=== PATIENT | male | born 1950 | race Caucasian/White ===

== ENCOUNTER 2017-07-16 09:41 | Day surgery (SDC) | payer MEDICARE ==
[~2017-07-16] VITALS: Ht 185.4 cm; Wt 99.8 kg
[~2017-07-16 09:41] MED LIST: AMOXICILLIN/PO500 MG PO; ANTIVERT OR; ANTIVERT25 MG PO; ASPIRIN EC81 MG PO; AUGMENTIN875TAB PO; COUMADIN10 MG PO; COUMADIN5 MG PO; COUMADIN7.5 MG PO; COZAAR50 MG PO; DOXAZOSIN1 MG PO; DOXAZOSIN4 MG PO; FLONASE NASAL50 MCG; KEFLEX500 M1 PO; LOPRESSOR50 M1 PO; LORTAB 5/3255 MG PO; MECLIZINE25 MG PO; METAMUCIL0.52 G1 PO; METOPROLOL50 MG PO; OMEPRAZOLE20 MG PO; ONDANSETRON4 MG PO; PERCOCET 5/325M1 TAB PO; PRILOSEC20 MG/CAP PO; VANCOMYCIN HCL1.5GM IV; WARFARIN10 MG PO; ZANTAC 150 PO
[2017-07-16 12:23] VITALS: BP 107/65
== END 2017-07-16 12:55 | disposition home or self-care (01) ==
LOC: ENDO 09:41 → ORM 18:00 → ENDO 18:00
PROVIDERS: ATTEND Internal Medicine Gastroenterology
PROC: 0DBL8ZX Excision of Transverse Colon, Via Natural or Artificial Opening Endoscopic, Diagnostic (ICD-10-PCS; principal; 2017-07-16)
DX: Z12.11 Encounter for screening for malignant neoplasm of colon (principal); K64.4 Residual hemorrhoidal skin tags; K62.89 Other specified diseases of anus and rectum; K64.8 Other hemorrhoids; K57.30 Diverticulosis of large intestine without perforation or abscess without bleeding; I10 Essential (primary) hypertension; I48.91 Unspecified atrial fibrillation; Z86.010 Personal history of colon polyps

== ENCOUNTER 2017-08-29 09:41 | Observation (INO) | payer MEDICARE ==
[~2017-08-29] VITALS: Ht 185.4 cm; Wt 100.0 kg
[2017-08-29 10:17] LABS: HEMATOCRIT 42.5 % (39.0-50.0); HEMOGLOBIN 14.9 g/dl (14.0-18.0); IMMATURE GRANULOCYTES 0.2 % (0.0-1.0); MEAN CORPUSCULAR HGB 30.2 pG CALC (26.0-32.0); MEAN CORPUSCULAR HGB CONC 35.1 g/L CALC (32.0-36.0); NEUT# 4.32 thou/uL (1.82-7.42); RED BLOOD COUNT 4.94 mill/uL (4.70-6.10); RED CELL DISTRI WIDTH 13.4 % (11.5-15.5)
[2017-08-29 10:30] LABS: ALBUMIN 4.2 g/dL (3.2-5.0); ALKALINE PHOSPHATASE 97 u/l (38-126); ANION GAP 16 (6-22 (CALC)); BILIRUBIN, TOTAL 0.8 mg/dL (0.0-1.4); BUN 13 mg/dL (8-23); BUN/CREATININE RATIO 14 (12-20 (CALC)); CALCIUM 8.9 mg/dL (8.4-10.2); CARBON DIOXIDE 27 mmol/l (22-30); CHLORIDE 104 mmol/l (95-108); CREATININE 0.9 mg/dL (0.7-1.3); GFR > 60 ML/MIN (>=60 (CALC)); GFR FOR AFR.AMER. > 60 ML/MIN (>=60 (CALC)); GLUCOSE 106 mg/dL (82-115); SGOT/AST 27 u/l (19-48); SGPT/ALT 43 u/l (11-66); SODIUM 143 mmol/l (137-146); TOTAL PROTEIN 7.8 g/dL (6.3-8.2)
[2017-08-29 11:26] LABS: URINE BILIRUBIN - DIPSTICK NEGATIVE (NEGATIVE); URINE BLOOD DIPSTICK NEGATIVE (NEGATIVE); URINE CLARITY CLEAR; URINE COLOR YELLOW; URINE GLUCOSE - DIPSTICK NEGATIVE (NEGATIVE); URINE KETONE NEGATIVE (NEGATIVE); URINE LEUK ESTERASE NEGATIVE (NEGATIVE); URINE NITRITE - DIPSTICK NEGATIVE (Negative); URINE PH 5.5 (4.5-8.0); URINE PROTEIN - DIPSTICK NEGATIVE (NEG-TRACE); URINE SPECIFIC GRAVITY >=1.030; URINE UROBILINOGEN - DIPSTICK 0.2 E.U./dL (0.2)
[2017-08-29 16:35] VITALS: BP 121/71
[2017-08-29 16:40] VITALS: BP 147/81
[2017-08-29 16:45] VITALS: BP 149/90
[2017-08-29 18:45] VITALS: BP 106/57
[2017-08-30 00:25] VITALS: BP 114/69
[2017-08-30 03:20] VITALS: BP 104/62
[2017-08-30 07:57] VITALS: BP 104/62
[2017-08-30 08:12] LABS: INTERNATIONAL NORMALIZED RATIO 2.6 RATIO (0.7-1.3); PROTHROMBIN TIME 30.6 SECONDS (9.0-12.5)
== END 2017-08-30 12:50 | disposition home or self-care (01) ==
LOC: ED 09:41 → ED-I 11:53 → ED 12:05 → MS2 12:06
PROVIDERS: Family Medicine; ADMIT Internal Medicine; ATTEND Internal Medicine
DX: R55 Syncope and collapse (principal); I48.0 Paroxysmal atrial fibrillation; I10 Essential (primary) hypertension; I73.9 Peripheral vascular disease, unspecified; G62.9 Polyneuropathy, unspecified; Z79.01 Long term (current) use of anticoagulants; R94.31 Abnormal electrocardiogram [ECG] [EKG]

== ENCOUNTER 2018-05-12 19:58 | Emergency (ER) | payer MEDICARE ==
[~2018-05-12] VITALS: Ht 185.4 cm; Wt 99.1 kg
[2018-05-12 20:40] LABS: HEMOGLOBIN 15.7 g/dl (14.0-18.0); IMMATURE GRANULOCYTES 0.4 % (0.0-1.0); MEAN CELL VOLUME 86.5 fL CALC (80.0-100.0); MEAN CORPUSCULAR HGB 30.2 pG CALC (26.0-32.0); MEAN CORPUSCULAR HGB CONC 34.9 g/L CALC (32.0-36.0); NEUT# 4.82 thou/uL (1.82-7.42); RED BLOOD COUNT 5.2 mill/uL (4.70-6.10); RED CELL DISTRI WIDTH 13.7 % (11.5-15.5)
[2018-05-12 20:51] LABS: ALBUMIN 4.4 g/dL (3.2-5.0); ALKALINE PHOSPHATASE 105 u/l (38-126); ANION GAP 13 (6-22 (CALC)); BILIRUBIN, TOTAL 0.6 mg/dL (0.0-1.4); BUN 19 mg/dL (8-23); BUN/CREATININE RATIO 19 (12-20 (CALC)); CARBON DIOXIDE 27 mmol/l (22-30); CHLORIDE 103 mmol/l (95-108); GFR > 60 ML/MIN (>=60 (CALC)); GFR FOR AFR.AMER. > 60 ML/MIN (>=60 (CALC)); POTASSIUM 4.1 mmol/l (3.5-5.1); SGOT/AST 29 u/l (19-48); SGPT/ALT 39 u/l (11-66); SODIUM 139 mmol/l (137-146)
[2018-05-12 20:54] LABS: TOTAL PROTEIN 8.3 g/dL (6.3-8.2)
[2018-05-12 20:56] LABS: INTERNATIONAL NORMALIZED RATIO 2.5 RATIO (0.7-1.3)
[2018-05-12 21:00] LABS: MYOGLOBIN 33 ng/mL (0 - 121)
[2018-05-12] MEDS ORDERED: LOPRESSOR 550 MG/TAB PO (21:41)
[2018-05-12 21:49] VITALS: BP 115/74
== END 2018-05-12 21:57 | disposition home or self-care (01) ==
LOC: ED 19:58
PROVIDERS: Family Medicine
DX: I48.0 Paroxysmal atrial fibrillation (principal); Z79.01 Long term (current) use of anticoagulants; R53.1 Weakness; R42 Dizziness and giddiness; I10 Essential (primary) hypertension

== ENCOUNTER 2018-12-09 20:00 | Emergency (ER) | payer MEDICARE ==
[~2018-12-09] VITALS: Ht 182.9 cm; Wt 100.0 kg
[~2018-12-09 20:00] MED LIST changes: +LOPRESSOR 550 MG/TAB PO
[2018-12-09 20:33] LABS: IMMATURE GRANULOCYTES 0.2 % (0.0-5.0); MEAN CELL VOLUME 86.6 fL CALC (80.0-100.0); MEAN CORPUSCULAR HGB 29.9 pG CALC (26.0-32.0); MEAN CORPUSCULAR HGB CONC 34.6 g/L CALC (32.0-36.0); NEUT# 4.62 thou/uL (1.82-7.42); RED BLOOD COUNT 5.31 mill/uL (4.70-6.10); RED CELL DISTRI WIDTH 13.3 % (11.5-15.5)
[2018-12-09 20:40] LABS: ALKALINE PHOSPHATASE 107 u/l (38-126); ANION GAP 16 (6-22 (CALC)); BILIRUBIN, TOTAL 0.6 mg/dL (0.0-1.4); BUN 18 mg/dL (8-23); BUN/CREATININE RATIO 16 (12-20 (CALC)); CARBON DIOXIDE 27 mmol/l (22-30); CHLORIDE 102 mmol/l (95-108); CREATININE 1.2 mg/dL (0.7-1.3); GFR 60 ML/MIN (>=60 (CALC)); GFR FOR AFR.AMER. > 60 ML/MIN (>=60 (CALC)); POTASSIUM 3.9 mmol/l (3.5-5.1); SGOT/AST 31 u/l (19-48); SODIUM 141 mmol/l (137-146)
[2018-12-09] MEDS ORDERED: HYDROCO/APAP1 TA9 PO (20:43)
[2018-12-09 20:52] LABS: MYOGLOBIN 38 ng/mL (0 - 121)
[2018-12-09 20:56] LABS: HEMOGLOBIN 15.9 g/dl (14.0-18.0)
[2018-12-09 21:03] LABS: INTERNATIONAL NORMALIZED RATIO 2.8 RATIO (0.7-1.3); PROTHROMBIN TIME 29.1 SECONDS (9.0-12.5)
[2018-12-09 21:21] LABS: ALBUMIN 4.7 g/dL (3.2-5.0); TOTAL PROTEIN 8.5 g/dL (6.3-8.2)
[2018-12-09 21:51] LABS: URINE BILIRUBIN - DIPSTICK NEGATIVE (NEGATIVE); URINE BLOOD DIPSTICK NEGATIVE (NEGATIVE); URINE COLOR YELLOW; URINE GLUCOSE - DIPSTICK 100 mg/dL (NEGATIVE); URINE KETONE NEGATIVE (NEGATIVE); URINE LEUK ESTERASE NEGATIVE (NEGATIVE); URINE NITRITE - DIPSTICK NEGATIVE (Negative); URINE PH 5.5 (4.5-8.0); URINE PROTEIN - DIPSTICK NEGATIVE (NEG-TRACE); URINE UROBILINOGEN - DIPSTICK 0.2 E.U./dL (0.2)
[2018-12-09 21:53] LABS: BARBITURATES NEGATIVE (NEGATIVE); COCAINE NEGATIVE (NEGATIVE); METHADONE NEGATIVE (NEGATIVE); OXCYCODONE NEGATIVE (NEGATIVE); TETRAHYDROCANNABIONOL NEGATIVE (NEGATIVE); TRICYLIC ANTIDEPRESSANTS NEGATIVE (NEGATIVE)
[2018-12-09] MEDS ORDERED: LOPRESSOR 550 MG/TAB PO (22:00)
[2018-12-09 22:02] VITALS: BP 112/77
== END 2018-12-09 22:02 | disposition home or self-care (01) ==
LOC: ED 20:00
PROVIDERS: Family Medicine
DX: I47.1 Supraventricular tachycardia (principal); F15.988 Other stimulant use, unspecified with other stimulant-induced disorder; I48.91 Unspecified atrial fibrillation; I10 Essential (primary) hypertension

== ENCOUNTER 2019-04-21 20:01 | Observation (INO) | payer MEDICARE ==
[~2019-04-21] VITALS: Ht 182.9 cm; Wt 95.5 kg
[~2019-04-21 20:01] MED LIST changes: +HYDROCO/APAP1 TA9 PO
[2019-04-21 20:26] LABS: HEMATOCRIT 43.3 % (39.0-50.0); HEMOGLOBIN 14.9 g/dl (14.0-18.0); IMMATURE GRANULOCYTES 0.3 % (0.0-5.0); MEAN CELL VOLUME 85.2 fL CALC (80.0-100.0); MEAN CORPUSCULAR HGB 29.3 pG CALC (26.0-32.0); MEAN CORPUSCULAR HGB CONC 34.4 g/L CALC (32.0-36.0); NEUT# 6.12 thou/uL (1.82-7.42); RED BLOOD COUNT 5.08 mill/uL (4.70-6.10); RED CELL DISTRI WIDTH 13.8 % (11.5-15.5)
[2019-04-21 20:58] LABS: ALBUMIN 4.2 g/dL (3.2-5.0); ALKALINE PHOSPHATASE 92 u/l (38-126); ANION GAP 14 (6-22 (CALC)); BILIRUBIN, TOTAL 0.5 mg/dL (0.0-1.4); BUN 19 mg/dL (8-23); BUN/CREATININE RATIO 19 (12-20 (CALC)); CARBON DIOXIDE 26 mmol/l (22-30); CHLORIDE 104 mmol/l (95-108); GFR > 60 ML/MIN (>=60 (CALC)); GFR FOR AFR.AMER. > 60 ML/MIN (>=60 (CALC)); POTASSIUM 3.7 mmol/l (3.5-5.1); SGOT/AST 23 u/l (19-48); SODIUM 140 mmol/l (137-146); TOTAL PROTEIN 7.2 g/dL (6.3-8.2)
[2019-04-21 21:10] LABS: ACT PARTIAL THROMBO TIME 42.1 SECONDS (20.0-32.5); INTERNATIONAL NORMALIZED RATIO 2.8 RATIO (0.7-1.3); MYOGLOBIN 31 ng/mL (0 - 121); PROTHROMBIN TIME 29.3 SECONDS (9.0-12.5)
[2019-04-21] MEDS ORDERED: WARFARIN7.5 MG PO (21:30)
[2019-04-21] MEDS ORDERED: COUMADIN5 MG PO (21:31)
[2019-04-21 21:39] LABS: URINE BILIRUBIN - DIPSTICK NEGATIVE (NEGATIVE); URINE BLOOD DIPSTICK NEGATIVE (NEGATIVE); URINE COLOR YELLOW; URINE GLUCOSE - DIPSTICK 500 mg/dL (NEGATIVE); URINE KETONE NEGATIVE (NEGATIVE); URINE LEUK ESTERASE NEGATIVE (NEGATIVE); URINE NITRITE - DIPSTICK NEGATIVE (Negative); URINE PH 5.5 (4.5-8.0); URINE PROTEIN - DIPSTICK NEGATIVE (NEG-TRACE); URINE UROBILINOGEN - DIPSTICK 0.2 E.U./dL (0.2)
[2019-04-21 21:46] LABS: BARBITURATES NEGATIVE (NEGATIVE); COCAINE NEGATIVE (NEGATIVE); METHADONE NEGATIVE (NEGATIVE); OXCYCODONE NEGATIVE (NEGATIVE); TETRAHYDROCANNABIONOL NEGATIVE (NEGATIVE); TRICYLIC ANTIDEPRESSANTS NEGATIVE (NEGATIVE)
[2019-04-21 22:09] VITALS: BP 125/73
[2019-04-21 23:45] VITALS: BP 150/75
[2019-04-22] VITALS (9 sets, daily range): BP systolic 96–127; BP diastolic 57–77
== END 2019-04-22 12:30 | disposition home or self-care (01) ==
LOC: ED 20:01 → ED-I 21:20 → ED 21:38 → MS2 21:39 → ICU 23:40
PROVIDERS: Emergency Medicine; ADMIT Internal Medicine; ATTEND Internal Medicine
DX: I48.0 Paroxysmal atrial fibrillation (principal); I10 Essential (primary) hypertension; L98.9 Disorder of the skin and subcutaneous tissue, unspecified; L91.8 Other hypertrophic disorders of the skin; Z79.01 Long term (current) use of anticoagulants

== ENCOUNTER 2019-12-31 | Emergency (ER) | payer MEDICARE ==
[~2019-12-31] MED LIST changes: +WARFARIN7.5 MG PO
[2019-12-31 11:54] LABS: MEAN CELL VOLUME 87.8 fL CALC (80.0-100.0); MEAN CORPUSCULAR HGB CONC 34.1 g/L CALC (32.0-36.0); NEUT# 4.15 thou/uL (1.82-7.42); RED BLOOD COUNT 4.67 mill/uL (4.70-6.10); RED CELL DISTRI WIDTH 13.3 % (11.5-15.5)
[2019-12-31 12:12] LABS: ALBUMIN 3.9 g/dL (3.2-5.0); ALKALINE PHOSPHATASE 81 u/l (38-126); ANION GAP 12 (6-22 (CALC)); BILIRUBIN, TOTAL 0.7 mg/dL (0.0-1.4); BUN 17 mg/dL (8-23); BUN/CREATININE RATIO 19 (12-20 (CALC)); CARBON DIOXIDE 26 mmol/l (22-30); CHLORIDE 105 mmol/l (95-108); CREATININE 0.9 mg/dL (0.7-1.3); GFR > 60 ML/MIN (>=60 (CALC)); GFR FOR AFR.AMER. > 60 ML/MIN (>=60 (CALC)); POTASSIUM 4.6 mmol/l (3.5-5.1); SGOT/AST 25 u/l (19-48); SODIUM 138 mmol/l (137-146); TOTAL PROTEIN 7.1 g/dL (6.3-8.2)
[2019-12-31 14:22] LABS: URINE BILIRUBIN - DIPSTICK NEGATIVE (NEGATIVE); URINE BLOOD DIPSTICK NEGATIVE (NEGATIVE); URINE COLOR YELLOW; URINE GLUCOSE - DIPSTICK NEGATIVE (NEGATIVE); URINE KETONE NEGATIVE (NEGATIVE); URINE LEUK ESTERASE NEGATIVE (NEGATIVE); URINE NITRITE - DIPSTICK NEGATIVE (Negative); URINE PH 5.5 (4.5-8.0); URINE PROTEIN - DIPSTICK NEGATIVE (NEG-TRACE); URINE UROBILINOGEN - DIPSTICK 0.2 E.U./dL (0.2)
[2019-12-31] MEDS ORDERED: TRAMADOL HYDROC50 MG PO (14:36)
[2019-12-31] MEDS ORDERED: MEDDOSEPAK PO ×2 (14:36)
[2019-12-31] MEDS ORDERED: FLEXERIL PO (14:36)
== END 2019-12-31 15:05 | disposition home or self-care (01) ==
DX: S39.012A Strain of muscle, fascia and tendon of lower back, initial encounter (principal); I10 Essential (primary) hypertension; I48.91 Unspecified atrial fibrillation; X58.XXXA Exposure to other specified factors, initial encounter
CPT/HCPCS: Q9967

== ENCOUNTER 2020-06-18 11:30 | Emergency (ER) | payer MEDICARE ==
[~2020-06-18] VITALS: Ht 182.9 cm; Wt 102.7 kg
[~2020-06-18 11:30] MED LIST changes: +FLEXERIL PO; +MEDDOSEPAK PO; +TRAMADOL HYDROC50 MG PO
[2020-06-18 12:34] LABS: HEMATOCRIT 41.8 % (39.0-50.0); HEMOGLOBIN 13.8 g/dl (14.0-18.0); IMMATURE GRANULOCYTES 0.2 % (0.0-5.0); MEAN CELL VOLUME 88.6 fL CALC (80.0-100.0); MEAN CORPUSCULAR HGB 29.2 pG CALC (26.0-32.0); NEUT# 7.29 thou/uL (1.82-7.42); RED BLOOD COUNT 4.72 mill/uL (4.70-6.10); RED CELL DISTRI WIDTH 13.2 % (11.5-15.5)
[2020-06-18 12:47] LABS: URINE BILIRUBIN - DIPSTICK NEGATIVE (NEGATIVE); URINE BLOOD DIPSTICK NEGATIVE (NEGATIVE); URINE COLOR YELLOW; URINE GLUCOSE - DIPSTICK NEGATIVE (NEGATIVE); URINE KETONE 15 mg/dL (NEGATIVE); URINE LEUK ESTERASE NEGATIVE (NEGATIVE); URINE NITRITE - DIPSTICK NEGATIVE (Negative); URINE PROTEIN - DIPSTICK NEGATIVE (NEG-TRACE); URINE SPECIFIC GRAVITY 1.015; URINE UROBILINOGEN - DIPSTICK 0.2 E.U./dL (0.2)
[2020-06-18 12:54] LABS: ALBUMIN 4.4 g/dL (3.2-5.0); ALKALINE PHOSPHATASE 78 u/l (38-126); AMYLASE 54 u/l (30-110); ANION GAP 14 (6-22 (CALC)); BILIRUBIN, TOTAL 0.6 mg/dL (0.0-1.4); BUN 47 mg/dL (8-23); BUN/CREATININE RATIO 51 (12-20 (CALC)); CARBON DIOXIDE 25 mmol/l (22-30); CHLORIDE 102 mmol/l (95-108); CREATININE 0.9 mg/dL (0.7-1.3); GFR > 60 ML/MIN (>=60 (CALC)); GFR FOR AFR.AMER. > 60 ML/MIN (>=60 (CALC)); LIPASE 47 u/l (23-300); POTASSIUM 4.9 mmol/l (3.5-5.1); SGOT/AST 22 u/l (19-48); SODIUM 136 mmol/l (137-146); TOTAL PROTEIN 7.9 g/dL (6.3-8.2)
[2020-06-18 13:08] LABS: ACT PARTIAL THROMBO TIME 32.1 SECONDS (20.0-32.5); INTERNATIONAL NORMALIZED RATIO 2.5 RATIO (0.7-1.3)
[2020-06-18 14:30] VITALS: BP 119/67
== END 2020-06-18 14:30 | disposition short-term general hospital (02) ==
LOC: ED 11:30
DX: K92.2 Gastrointestinal hemorrhage, unspecified (principal); I95.9 Hypotension, unspecified; I10 Essential (primary) hypertension; I48.91 Unspecified atrial fibrillation; Z79.01 Long term (current) use of anticoagulants; Z20.828 Contact with and (suspected) exposure to other viral communicable diseases
CPT/HCPCS: S0164

== ENCOUNTER 2022-06-14 21:41 | Emergency (ER) | payer MEDICARE ==
[~2022-06-14] VITALS: Ht 182.9 cm; Wt 100.0 kg
[2022-06-14] VITALS (8 sets, daily range): BP systolic 123–147; BP diastolic 66–86
[2022-06-14 22:15] LABS: HEMATOCRIT 44.1 % (39.0-50.0); IMMATURE GRANULOCYTES 0.1 % (0.0-5.0); MEAN CELL VOLUME 89.6 fL CALC (80.0-100.0); MEAN CORPUSCULAR HGB 30.5 pG CALC (26.0-32.0); NEUT# 10.7 thou/uL (1.82-7.42); RED BLOOD COUNT 4.92 mill/uL (4.70-6.10); RED CELL DISTRI WIDTH 13.1 % (11.5-15.5)
[2022-06-14 22:33] LABS: ALBUMIN 4.3 g/dL (3.2-5.0); ALKALINE PHOSPHATASE 104 u/l (38-126); ANION GAP 12 (6-22 (CALC)); BUN 18 mg/dL (8-23); BUN/CREATININE RATIO 19 (12-20 (CALC)); CARBON DIOXIDE 28 mmol/l (22-30); CHLORIDE 102 mmol/l (95-108); CREATININE 0.9 mg/dL (0.7-1.3); GFR FOR AFR.AMER. > 60 ML/MIN (>=60 (CALC)); GFR OTHER RACES > 60 ML/MIN (>=60 (CALC)); LIPASE 36 u/l (23-300); POTASSIUM 4.2 mmol/l (3.5-5.1); SGOT/AST 28 u/l (19-48); SODIUM 138 mmol/l (137-146); TOTAL PROTEIN 7.6 g/dL (6.3-8.2)
[2022-06-14 22:34] LABS: BILIRUBIN, TOTAL 0.9 mg/dL (0.0-1.4)
[2022-06-14] MEDS ORDERED: DICYCLOMINE HCL20 MG PO (22:59)
[2022-06-14] MEDS ORDERED: ZOFRAN4 MG/TAB PO (22:59)
[2022-06-15] VITALS: BP 125/74
[2022-06-15 00:15] VITALS: BP 119/75
[2022-06-15 00:20] VITALS: BP 119/75
[2022-06-15] MEDS ORDERED: ASPIRIN81 MG PO (00:29)
[2022-06-15] MEDS ORDERED: ACETAMINOP160 MG/5 M PO (00:30)
== END 2022-06-15 00:35 | disposition home or self-care (01) ==
LOC: ED 21:41
PROVIDERS: Internal Medicine
DX: R11.2 Nausea with vomiting, unspecified (principal); R10.9 Unspecified abdominal pain; I48.91 Unspecified atrial fibrillation; I10 Essential (primary) hypertension; G62.9 Polyneuropathy, unspecified

== ENCOUNTER 2022-10-26 14:52 | Emergency (ER) | payer MEDICARE ==
[~2022-10-26] VITALS: Ht 182.9 cm; Wt 99.0 kg
[~2022-10-26 14:52] MED LIST changes: +ACETAMINOP160 MG/5 M PO; +ASPIRIN81 MG PO; +DICYCLOMINE HCL20 MG PO; +ZOFRAN4 MG/TAB PO
[2022-10-26 16:02] VITALS: BP 137/97
== END 2022-10-26 16:35 | disposition home or self-care (01) ==
LOC: ED 14:52
DX: J06.9 Acute upper respiratory infection, unspecified (principal); I48.91 Unspecified atrial fibrillation; I10 Essential (primary) hypertension; G62.9 Polyneuropathy, unspecified; Z95.2 Presence of prosthetic heart valve; Z95.818 Presence of other cardiac implants and grafts; Z20.822 Contact with and (suspected) exposure to COVID-19

== ENCOUNTER 2023-01-25 01:50 | Emergency (ER) | payer MEDICARE ==
[~2023-01-25] VITALS: Ht 188 cm; Wt 100.0 kg
[2023-01-25 02:34] LABS: BASO% 0.4 % (0-3); EOS% 1.5 % (0-8); HEMATOCRIT 45.1 % (39.0-50.0); IMMATURE GRANULOCYTES 0.1 % (0.0-5.0); LYMPH% 18.4 % (15-41); MEAN CELL VOLUME 88.6 fL CALC (80.0-100.0); MEAN CORPUSCULAR HGB 29.5 pG CALC (26.0-32.0); MEAN CORPUSCULAR HGB CONC 33.3 g/dL CAL (32.0-36.0); MONO% 6.3 % (2-13); NEUT# 7.85 thou/uL (1.82-7.42); NEUT% 73.3 % (42-76); RED BLOOD COUNT 5.09 mill/uL (4.70-6.10); RED CELL DISTRI WIDTH 12.8 % (11.5-15.5)
[2023-01-25 02:46] LABS: ALBUMIN 4.5 g/dL (3.2-5.0); ALKALINE PHOSPHATASE 93 u/l (38-126); ANION GAP 12 (6-22 (CALC)); BILIRUBIN, TOTAL 0.6 mg/dL (0.2-1.3); BUN 19 mg/dL (8-23); BUN/CREATININE RATIO 17 (12-20 (CALC)); CARBON DIOXIDE 33 mmol/l (22-30); CHLORIDE 99 mmol/l (95-108); CREATININE 1.1 mg/dL (0.7-1.3); GFR FOR AFR.AMER. > 60 ML/MIN (>=60 (CALC)); GFR OTHER RACES > 60 ML/MIN (>=60 (CALC)); LIPASE 32 u/l (23-300); POTASSIUM 4.1 mmol/l (3.5-5.1); SGOT/AST 34 u/l (19-48); SODIUM 139 mmol/l (137-146); TOTAL PROTEIN 8.1 g/dL (6.3-8.2)
[2023-01-25] MEDS ORDERED: IBUPROFEN600 MG PO (02:52)
[2023-01-25] MEDS ORDERED: PROMETHAZINE HY25 M1 PO (03:00)
[2023-01-25 05:04] VITALS: BP 138/78
== END 2023-01-25 06:19 | disposition home or self-care (01) ==
LOC: ED 01:50
PROVIDERS: Family Medicine
DX: K52.9 Noninfective gastroenteritis and colitis, unspecified (principal); G62.9 Polyneuropathy, unspecified; I48.91 Unspecified atrial fibrillation; I10 Essential (primary) hypertension